=== PATIENT | female | born 1995 | race Asian ===

== ENCOUNTER 2017-04-26 08:54 | Emergency (ER) | payer OTHER ==
[2017-04-26] MEDS ORDERED: IPRATROPIUM/ALBUTEROL 3 ML DEYVIAL ONE (09:09)
[2017-04-26] MEDS ORDERED: IPRATROPIUM/ALBUTEROL 3 ML DEYVIAL IH ONE (09:11)
--- NOTE | 2017-04-26 09:13 | EDPHY ---
H & P Stated Complaint: asthma attack HPI/ROS: CHIEF COMPLAINT: Asthma exacerbation HISTORY OF PRESENT ILLNESS: Patient complains of shortness of breath, wheezing. This started Tuesday while cleaning a home. She does does for a living and this often times causes an asthma exacerbation, which she feels this is. She does not have a prescription for albuterol, but she did use her roommate several times. It was minimally helpful. The symptoms worsened over the past 2 days. She thus presented to [facility] this morning. They were not comfortable with her presentation, thus they sent her here by ambulance. Albuterol was administered EN route. This is minimally helped her complaints. They also administered Solu-Medrol in route. Symptoms are worse with any exertion. They have minimally improved with albuterol. No fever or chills. No cough. She is certain that this is her asthma as it is not well controlled. REVIEW OF SYSTEMS: Ten systems reviewed and are negative unless otherwise noted in the HPI PAST MEDICAL HISTORY: Asthma SOCIAL HISTORY: Nonsmoker, works as a communications associate and Student FAMILY HISTORY: Noncontributory EXAMINATION General Appearance: Alert, no distress, tachypneic, no respiratory distress Head: normocephalic, atraumatic Eyes: Pupils equal and round, no conjunctival pallor or injection ENT, Mouth: Mucous membranes moist. Uvula midline. Airway is widely patent. Neck: Normal inspection, supple, non-tender. Trachea midline Respiratory: Scattered wheezing in all painter. No retractions. Tachypnea without respiratory distress. No consolidation or crackles Cardiovascular: Tachycardic rate with regular rhythm. No murmur Gastrointestinal: Abdomen is soft and nontender Back: non-tender, no bony abnormalities Neurological: A&O, nonfocal, normal gait Skin: Warm and dry, no rash Extremities: Nontender, no pedal edema Psychiatric: Mood and affect normal DIFFERENTIAL DIAGNOSES: Including but not limited to asthma exacerbation, pneumonia, PE, status asthmaticus, bronchitis MDM: 9:12 a.m. Acute asthma attack with tachycardia and oxygenation of 89 92% on room air. She has minimal pain. She has been wheezing and coughing. She has tachycardic rate hemodynamically stable. We are adding a DuoNeb treatment and chest x-ray. She received 2 albuterol treatments prior to arrival per 10:00 a.m. I have re-evaluated the patient. She is feeling significantly better after the breathing treatments of DuoNeb. She remains mildly tachycardic but in no acute distress. No chest pain at this time. X-rays pending. 10:25 a.m. x-ray has been read as airway disease consistent with bronchitis. Also fits the clinical picture of asthma. No pneumonia. 11:30 a.m. Patient has significantly improved after DuoNeb treatments. She did remain mildly tachycardic but says that she is feeling significantly better after treatment. I did offer and recommend observation as she was tachycardic and oxygenation has been 90-92%. She has declined. She prefers to be discharged home. I do feel she is stable for discharge home with close observation. She should return to the emergency department immediately for any changes or symptoms. We will discharge her home with course of steroids, albuterol inhaler and albuterol prescription. She will follow up with primary care physician or return to this facility. She is comfortable with this plan and discharged home stable condition SUPERVISION: Patient was evaluated in conjunction with the supervising physician. Please see their note for details. Source: Patient, RN/MD Exam Limitations: No limitations - Personal History LMP (Females 10-55): Unknown Current Tetanus/Diphtheria Vaccine: Unsure Current Tetanus Diphtheria and Acellular Pertussis (TDAP): Unsure - Medical/Surgical History Hx Asthma: Yes Hx Chronic Respiratory Disease: No Hx Diabetes: No Hx Cardiac Disease: No Hx Renal Disease: No Hx Cirrhosis: No Hx Alcoholism: No Hx HIV/AIDS: No Hx Splenectomy or Spleen Trauma: No Other PMH: asthma - Social History Smoking Status: Never smoked Constitutional: Initial Vital Signs Temperature (C) 99.5 F 04/26/17 09:00 Heart Rate 124 H 04/26/17 09:00 Respiratory Rate 20 04/26/17 09:00 Blood Pressure 132/97 H 04/26/17 09:00 O2 Sat (%) 100 04/26/17 09:00 O2 Delivery Mode Room Air O2 (L/minute) 10 Allergies/Adverse Reactions: No Known Allergies Allergy (Unverified 04/26/17 09:00) Home Medications: Medication Instructions Recorded Albuterol [Proventil Inhaler HFA 1 - 2 puffs IH Q4H PRN #1 mdi 04/26/17 (*)] predniSONE [Deltasone] 60 mg PO DAILY #15 tablet 04/26/17 Medical Decision Making - Data Points Medications Given: Discontinued Medications Albuterol Sulfate (Proventil Inh Prepack) 1 mdi TAKEHOME EDNOW ONE Stop: 04/26/17 10:26 Last Admin: 04/26/17 10:42 Dose: 1 mdi Albuterol/Ipratropium (Duoneb) 3 ml IH EDNOW ONE Stop: 04/26/17 09:12 Last Admin: 04/26/17 09:20 Dose: 3 ml Departure - Departure Disposition: Home, Routine, Self-Care Clinical Impression: Asthma without status asthmaticus with acute exacerbation Condition: Good Instructions: Albuterol (By breathing), Asthma (ED), Wheezing (ED), How Your Lungs Work (ED) Additional Instructions: 1. Albuterol inhaler as discussed as needed for shortness of breath or wheezing 2. Steroid Dosepak as discussed 3. Return to the emergency department for worsening symptoms, any chest pain or fever 4. Follow up primary care physician for further care Referrals: Patient,NotPresent [Unknown] - As per Instructions Augusto Nelson MD [[facility] [place] Primary Care Provider] - As per Instructions Stand Alone Forms: Work Excuse Prescriptions: Albuterol [Proventil Inhaler HFA (*)] 1 - 2 puffs IH Q4H PRN #1 mdi PRN Reason: Short Of Breath/Dyspnea predniSONE [Deltasone] 60 mg PO DAILY #15 tablet Print Language: Cuban Marlenarin
--- NOTE | 2017-04-26 09:41 | CPEKG ---
Heart Rate: 139 RR Interval: 432 P-R Interval: 144 QRSD Interval: 82 QT Interval: 296 QTC Interval: 450 P [place]: 76 QRS [place]: 87 T Wave [place]: -78 EKG Severity - ABNORMAL ECG - EKG Impression: SINUS TACHYCARDIA Electronically Signed By: Bernardo Weeks 26-Apr-2017 09:48:51
[2017-04-26] MEDS ORDERED: ALBUTEROL INH PREPACK MDI TAKEHOME ONE (10:25)
[2017-04-26 10:43] VITALS: BP 127/68; PULSE 105; RESP 19; TEMP 98.4; O2SAT 93
== END 2017-04-26 10:42 | disposition home or self-care (01) ==
DX: J45.901 Unspecified asthma with (acute) exacerbation (principal)